=== PATIENT | female | born 1990 | race Caucasian/White ===

== ENCOUNTER 2021-06-18 02:34 | Inpatient (IN) | payer BC ==
[~2021-06-18] VITALS: Ht 160 cm; Wt 71.8 kg
[2021-06-18] VITALS (16 sets, daily range): BP systolic 102–145; BP diastolic 52–91; PULSE 48–83; TEMP 97.6–98.1
[~2021-06-18 02:34] MED LIST: MOTRIN 800800 MG/TAB PO; PERCOCET 325 MG1 TA2 PO; PRENATAL1 TA7 PO
--- NOTE | 2021-06-18 02:45 | NUR ---
0245- PATIENT AND SPOUSE TO UNIT. ORIENTATED TO ROOM AND CHANGED INTO CLEAN GOWN. PATIENT OF DR. BARRERA WHO IS A AT 40.2. PATIENT STATES CONTRACTIONS STARTED AROUND 0100 AND THAT WAS WHEN SHE THOUGHT HER WATER MAY HAVE BROKE WELL. REPORTS GFM, SOME SPOTTING WHEN WIPING. 0250- EFM AND TOCO TRACING. VITALS TAKEN, ASSESSMENT COMPLETED. SVE BULDGING BAG OF WATER. PLAN OF CARE DISCUSSED. 0303- PROVIDER NOTIFIED, SEE PHYSICIAN NOTIFICATION. 0310- IV STARTED. PATIENT COPING WELL WITH CONTRACTIONS AND LABOR AT THIS TIME. PLANS ON GOING UNBLOCKED LIKE HER OTHER DELIVERIES WHICH SHE ADVISED WERE QUICK DELIVERIES. PATIENT DENIES FURHTER NEEDS. CALL LIGHT WITHIN REACH.
[2021-06-18 03:31] LABS: BASO % 0.2 % (0.0-2.0); EOS # 0.1 K/mm3 (0.0-0.7); EOS % 0.7 % (0.0-4.0); GRAN % 59.7 % (42.2-75.2); HEMOGLOBIN 13.7 g/dl (12.5-16.0); LYMPH # 2.4 K/mm3 (1.2-3.4); LYMPH % 28.2 % (20.0-51.0); MEAN CELL VOLUME 91 fl (80.0-100.0); MEAN CORPUSCULAR HEMOGLOBIN 32 pg (27-31); MEAN CORPUSCULAR HGB CONC 35 g/dl (33.0-37.0); MONO # 0.9 K/mm3 (0.1-0.6); MONO % 10.4 % (1.7-9.3); PLATELET COUNT 179 K/mm3 (130-400); RED BLOOD COUNT 4.28 M/mm3 (4.10-5.30); REDCELL DISTRIBUTION WIDTH-CV 13.1 % (11.5-14.5)
--- NOTE | 2021-06-18 04:34 | NUR ---
0434- PATIENT CALLED OUT THAT HER WATER JUST BROKE IN THE BED. THIS RN TO BEDSIDE. SROM VERIFIED. PATIENT VERBALIZING THAT SHE HAS LARGE URGE TO PUSH NOW. COACHED PATIENT THROUGH BREATHING. CALLED CHARGE NURSE TO NOTIFY HER AND HAVE HER CALL PROVIDER. 0440- SVE COMPLETE AND AT 0 STATION. THIS RN AND CHARGE NURSE REMAIN AT BEDSIDE AND PREP PATIENT AND ROOM FOR DELIVERY. 0450- DR. SANTANA TO BEDSIDE FOR DELIVERY. NURSERY STAFF IN THE ROOM WELL. 0454- PATIENT BEGINS PUSHING WITH PROVIDER DURING CONTRACTIONS. 0456- OF VIABLE MALE . INFANT PLACED TO MOTHERS ABDOMEN DURING THIS TIME WHERE NURSERY NURSE ASSUMES CARE. CORD CLAMPED AND CUT. 0459- OF PLACENTA. PITOCIN TURNED ON PER PROTOCOL AT 333ML/HR. FUNDUS MASSAGE TO FIRM WITH SMALL CLOTS NOTED. 2ND DEGREE TEAR NOTED BY PROVIDER AND REPAIRED DURING THIS TIME. PROVIDER NOTED 200 EBL. 0515- VITALS STABLE, FUNDUS FIRM. NEW BEDDING, CHUX PAD, PERIPAD AND ICEPACK TO PERINEUM. PATIENT AND ROOM PUT BACK TOGETHER. RECOVERY STARTED.
--- NOTE | 2021-06-18 07:55 | NUR ---
Pt up to the bathroom with stand-by assist and without complications. Pt was able to void. Inga-care done. Pt transferred to room 214 ambulatory. Oriented to room, bed and call light within reach.
--- NOTE | 2021-06-18 19:59 | NUR ---
REPORT RECEIVED FROM OFF GOING RN, JAMILAH Goldman. CARE TAKEN OVER BY THIS RN.
[2021-06-19 07:40] VITALS: BP 106/73; PULSE 56; TEMP 97.6
[2021-06-19] MEDS ORDERED: IBU800 M1 PO (10:23)
== END 2021-06-19 10:45 | disposition home or self-care (01) | DRG 805 ==
LOC: LDRO 02:34 → LDR 04:09 → OB 07:58
PROVIDERS: Obstetrics & Gynecology; ADMIT Student in an Organized Health Care Education/Training Program
PROC: 10E0XZZ Delivery of Products of Conception, External Approach (ICD-10-PCS; principal; 2021-06-18)
PROC: 0KQM0ZZ Repair Perineum Muscle, Open Approach (ICD-10-PCS; 2021-06-18)
DX: O99.02 Anemia complicating childbirth (principal); O99.42 Diseases of the circulatory system complicating childbirth; Z37.0 Single live birth; R01.1 Cardiac murmur, unspecified; D64.9 Anemia, unspecified; O70.1 Second degree perineal laceration during delivery; Z3A.40 40 weeks gestation of pregnancy
CPT/HCPCS: J2590; J7120

== ENCOUNTER 2022-12-15 13:07 | Inpatient (IN) | payer BC ==
[2022-12-15] VITALS (14 sets, daily range): BP systolic 97–116; BP diastolic 51–101; PULSE 63–96; TEMP 98.1–98.7
[~2022-12-15] VITALS: Ht 160 cm; Wt 72.5 kg
--- NOTE | 2022-12-15 13:00 | NUR ---
PT WHEELED ONTO WHEEL CHAIR WITH SPOUSE. PT REPORTS INCREASING CONTRACTIONS,LOF,AND THE FEELING OF THE NEED TO PUSH.KEISHA GRIDER,SHOP SUPERINTENDENT ADVISED PATIENT TO CHANGE INTO GOWN. SVE PER PASCUAL SOMMERS RN /+2.BAG OF WATER INTACT. POC OF CARE REVIEWED WITH PATIENT.PHYSICAN NOTIFIED.PT VERBALIZES UNDERSTANDING.
[~2022-12-15 13:07] MED LIST changes: +IBU800 M1 PO
[2022-12-15 13:54] LABS: BASO % 0.3 % (0.0-2.0); EOS % 0.1 % (0.0-4.0); GRAN # 10.5 K/mm3 (1.4-6.5); GRAN % 78.5 % (42.2-75.2); HEMATOCRIT 41.3 % (37.0-47.0); HEMOGLOBIN 14.2 g/dl (12.5-16.0); LYMPH # 1.8 K/mm3 (1.2-3.4); LYMPH % 13.2 % (20.0-51.0); MEAN CELL VOLUME 92 fl (80.0-100.0); MEAN CORPUSCULAR HEMOGLOBIN 32 pg (27-31); MEAN CORPUSCULAR HGB CONC 34 g/dl (33.0-37.0); MEAN PLATELET VOLUME 11.6 fl (7.4-10.4); MONO % 7.1 % (1.7-9.3); PLATELET COUNT 239 K/mm3 (130-400); RED BLOOD COUNT 4.47 M/mm3 (4.10-5.30); REDCELL DISTRIBUTION WIDTH-CV 12.9 % (11.5-14.5)
--- NOTE | 2022-12-15 16:00 | NUR ---
1330 SVE PER PASCUAL SUGGS RN /+2 WITH BREECH PRESENTATION.PHYSICAN CALLED EMERGENCY C SECTION.ALL APPROPRIATE STAFF NOTIFED. 1336 PT TO OR VIA BED FOR PRIMARY C SECTION PER DR SANTANA WITH DR CARROLL ASSISTANCE. 1342 C SECTION DELIVERY OF VIABLE MALE INFANT PER DR SANTANA.INFANT TO WARMER AND CARE ASSUMED BY SAKINA MITCHELL RN.STRONG CRY NOTED AT DELIVERY. CORD GASES OBTAINED AND SENT TO LAB.TOTAL QBL 960. ZOILA ADMINISTERED PER DR SANTANA.BLEEDING CONTROLLED FOLLOWING PROCEDURE.FUNDUS FIRM AT THE UMBILICUS WITH MASSAGE.MATERNAL VITAL SIGNS STABLE. 1433 PT TO PACU VIA BED IN STABLE CONDITION.WILL CONTINUE TO MONITOR CARES PER PROTOCOL.
[2022-12-16 00:10] VITALS: BP 119/77; PULSE 58; TEMP 97.8
[2022-12-16 04:20] VITALS: BP 112/67; PULSE 66; TEMP 98.1
[2022-12-16 08:30] VITALS: BP 111/65; PULSE 94; TEMP 98.1
[2022-12-16 16:33] VITALS: BP 112/60; PULSE 75; TEMP 98.3
[2022-12-16] MEDS ORDERED: MOTRIN 800800 MG/TAB PO (16:45)
[2022-12-16] MEDS ORDERED: PERCOCET 325 MG1 TA2 PO (16:45)
[2022-12-16 18:30] VITALS: BP 110/57; PULSE 76; TEMP 98.4
[2022-12-17 07:40] VITALS: BP 110/64; PULSE 100; TEMP 98.2
== END 2022-12-17 11:55 | disposition home or self-care (01) | DRG 788 ==
LOC: LDRO 13:07 → LDR 13:32 → OB 17:00
PROVIDERS: Obstetrics & Gynecology; ADMIT Student in an Organized Health Care Education/Training Program
PROC: 10D00Z1 Extraction of Products of Conception, Low, Open Approach (ICD-10-PCS; principal; 2022-12-15)
DX: O32.1XX0 Maternal care for breech presentation, not applicable or unspecified (principal); Z3A.39 39 weeks gestation of pregnancy; Z37.0 Single live birth; Z23 Encounter for immunization
CPT/HCPCS: J0330; J0665; J0690; J1100; J1885; J2250; J2405; J2704; J3010